=== PATIENT | female | born 1950 | race Caucasian/White ===

== ENCOUNTER 2017-07-25 10:49 | Inpatient (IN) | payer OTHER ==
[~2017-07-25] VITALS: Ht 162.6 cm; Wt 79.8 kg
[~2017-07-25 10:49] MED LIST: CIPRO250 M2 PO; DESYREL300 MG PO; NORCO 5-325 TA1 EACH PO; RESTORIL15 MG PO; TRAMADOL 50 MG50 MG PO; ZPAK PO; sleeping pill
[2017-07-25 10:57] VITALS: BP 169/81
[2017-07-25 11:17] LABS: ABSOLUTE EOSINOPHILS 0.1 thou/uL (0.0-0.7); ABSOLUTE LYMPHOCYTES 2.2 thou/uL (0.8-5.3); ABSOLUTE MONOCYTES 0.6 thou/uL (0.0-1.2); ABSOLUTE NEUTROPHILS 3.2 thou/uL (1.6-8.1); BASOPHILS 0.8 %; EOSINOPHILS 2.2 %; HEMATOCRIT 30.3 % (37.0-47.0); HEMOGLOBIN 9.9 gm/dL (12.0-15.0); LYMPHOCYTES 35.6 %; MCH 31.1 pg (26.0-34.0); MCHC 32.8 g/dL (28.0-37.0); MCV 94.9 fL (80.0-100.0); MONOCYTES 8.9 %; MPV 6.2 fl. (7.2-11.1); NUCLEATED RBCS 0 /100WBC; PLATELET COUNT* 282 thou/uL (150-400); POLYS 52.5 %; RDW-CV 13.9 % (10.5-14.5); WBC 6.2 thou/uL (4.0-11.0)
[2017-07-25 11:24] LABS: CREATININE 3.7 mg/dL (0.6-1.3); POTASSIUM 4.2 mmol/L (3.5-5.1)
[2017-07-25 11:29] LABS: TOTAL BILIRUBIN 0.1 mg/dL (<0.1-1.0); TOTAL PROTEIN 7.4 g/dL (6.4-8.2)
[2017-07-25 11:38] LABS: URINE BILIRUBIN NEGATIVE (Negative); URINE BLOOD 3+ (Negative); URINE CLARITY CLEAR; URINE COLOR YELLOW; URINE GLUCOSE-RANDOM NEGATIVE (Negative); URINE KETONES NEGATIVE (Negative); URINE LEUKOCYTES-REFLEX NEGATIVE (Negative); URINE NITRITE-REFLEX NEGATIVE (Negative); URINE PROTEIN TRACE (Negative); URINE UROBILINOGEN 0.2 E.U./dl (0.2-1.0)
[2017-07-25 11:43] LABS: BACTERIA-REFLEX 1-9 Few /HPF (None Seen); CASTS None Seen /LPF (None Seen); CRYSTALS None Seen /LPF (None Seen); MUCUS 0-3 Light strn/LPF (None Seen); SQUAMOUS 0-3 Few /LPF (0-3); URINE RBC 3-10 Few /HPF (0-2); URINE WBC-REFLEX 0-5 Rare /HPF (0-5)
[2017-07-25 13:30] VITALS: BP 153/83
[2017-07-25 14:30] VITALS: BP 169/76
[2017-07-25 21:05] VITALS: BP 150/77
[2017-07-25 23:08] LABS: HEPATITIS B SURFACE AG Negative (Negative)
[2017-07-26 03:52] LABS: HEMATOCRIT 26.6 % (37.0-47.0); HEMOGLOBIN 8.8 gm/dL (12.0-15.0)
[2017-07-26 04:27] LABS: ALBUMIN 2.6 g/dL (3.4-5.0); CALCIUM 8.2 mg/dL (8.5-10.1); CREATININE 3.6 mg/dL (0.6-1.3); MAGNESIUM 1.9 mg/dL (1.8-2.4); PHOSPHORUS* 4.6 mg/dL (2.5-4.9); POTASSIUM 4.4 mmol/L (3.5-5.1)
[2017-07-26 08:30] VITALS: BP 148/74
[2017-07-26 15:29] VITALS: BP 139/74
[2017-07-26 20:30] VITALS: BP 151/81
[2017-07-27 03:44] VITALS: BP 122/68
[2017-07-27 03:48] LABS: HEMATOCRIT 27.6 % (37.0-47.0); HEMOGLOBIN 9.3 gm/dL (12.0-15.0); MCH 31.6 pg (26.0-34.0); MCHC 33.8 g/dL (28.0-37.0); MCV 93.6 fL (80.0-100.0); MPV 6.7 fl. (7.2-11.1); RBC 2.95 mil/uL (4.20-5.00); RDW-CV 13.7 % (10.5-14.5); WBC 7.3 thou/uL (4.0-11.0)
[2017-07-27 04:34] LABS: CALCIUM 8.4 mg/dL (8.5-10.1); CREATININE 3.5 mg/dL (0.6-1.3); POTASSIUM 4.4 mmol/L (3.5-5.1)
[2017-07-27 08:15] VITALS: BP 119/71
[2017-07-27 15:50] VITALS: BP 135/67
[2017-07-27 20:30] VITALS: BP 147/88
[2017-07-27 23:45] VITALS: BP 133/76
[2017-07-28 03:58] LABS: HEMATOCRIT 29.4 % (37.0-47.0); HEMOGLOBIN 9.8 gm/dL (12.0-15.0); MCH 31.1 pg (26.0-34.0); MCHC 33.3 g/dL (28.0-37.0); MCV 93.3 fL (80.0-100.0); MPV 6.6 fl. (7.2-11.1); RBC 3.15 mil/uL (4.20-5.00); WBC 7.9 thou/uL (4.0-11.0)
[2017-07-28 04:10] LABS: APTT 26.3 Seconds (25.0-31.3); CALCIUM 8.7 mg/dL (8.5-10.1); CREATININE 3.5 mg/dL (0.6-1.3); POTASSIUM 4.5 mmol/L (3.5-5.1); PROTIME 9.5 Seconds (9.20-11.50)
[2017-07-28 08:40] VITALS: BP 128/72
[2017-07-28 09:08] LABS: GLOMERULR BASEM MEMBRN AB 5 units (0-20)
[2017-07-28 12:06] LABS: ANA INTERPRETATION Positive (Negative); KAPPA FREE LIGHT CHAINS 66.7 mg/L (3.3-19.4); LAMBDA FREE LIGHT CHAINS 36.3 mg/L (5.7-26.3)
[2017-07-28 16:00] VITALS: BP 130/68
[2017-07-28 18:06] LABS: GLOBULIN TOTAL 3.7 g/dL (2.2-3.9); M-SPIKE Not Observed g/dL (Not Observed)
[2017-07-28 20:50] VITALS: BP 136/76
[2017-07-29] VITALS (17 sets, daily range): BP systolic 108–132; BP diastolic 52–81
[2017-07-29] MEDS ORDERED: TRAMADOL 50 MG50 MG PO (09:21)
[2017-07-29] MEDS ORDERED: FOLIC ACID1 MG PO (09:21)
[2017-07-29] MEDS ORDERED: FERREX 150 PLU1 EAC1 PO (09:21)
--- NOTE | 2017-07-29 09:34 | CON ---
[address] [address] CONSULTATION Name: SANDRITAMAHESH K Room: [address] IN .R.#: [id number] Admission: 07/25/17 Attend Phys: Connie Garcia MD Discharge: Date of : 54 Report #: [id number] THIS REPORT FOR: //name// CC: Edyta Garcia DATE OF SERVICE: 07/25/2017 NEPHROLOGY CONSULTATION CONSULTING PHYSICIAN: Dr. Garcia. REASON FOR CONSULTATION: Acute kidney injury. HISTORY OF PRESENT ILLNESS: This is a 66-year-old female who was seen by me in the office one time in December for elevated creatinine. She is admitted because on recent lab work done, her creatinine had increased from 1.9-3.5. It is 3.7 here today. The patient herself denies any nausea, vomiting, diarrhea, decreased intake, new medications, antibiotics or NSAIDs. She denies any dysuria or gross hematuria. She was seen in our office in December by me and was to follow up at that time in 3 months. She currently appears to be comfortable. REVIEW OF SYSTEMS: Constitutional, psych, heme, eyes, ENT, respiratory, cardiac, GI, , endocrine, all negative except as documented above. She denies any arthralgias, rashes or hemoptysis. CURRENT MEDICATIONS: Reviewed. PAST MEDICAL HISTORY: History of rectal cancer, depression, anxiety. FAMILY HISTORY: Positive for heart disease. SOCIAL HISTORY: No history of tobacco. PHYSICAL EXAMINATION: VITAL SIGNS: Blood pressure 153/83, pulse 87, respirations 16, temperature 36.5. GENERAL: In no acute distress. EYES: Extraocular movements intact. EARS: Externally normal. CARDIOVASCULAR: Regular rate. LUNGS: No crackles. ABDOMEN: Soft. LYMPHATICS: No substantial peripheral pitting edema. PSYCHIATRIC: Awake, [place] [address] CONSULTATION Name: MAHESH REMY Room: [address] IN [facility]#: [id number] Admission: 07/25/17 Attend Phys: Connie Garcia MD Discharge: Date of : 54 Report #: [id number] LABORATORY DATA: White cell count 6.8, hemoglobin 9.9, platelets 282. Sodium 141, potassium 4.2, chloride 107, bicarbonate 25, BUN 39, creatinine 3.7, glucose 100, calcium 9, albumin 3. UA shows trace protein, 3+ blood, 3-10 rbc's. ASSESSMENT AND PLAN: 1. Acute kidney injury. In February 2016, creatinine 0.9; September 2016, creatinine 1.9. and outpatient creatinine 3.5. November 2016 ultrasound showing left kidney 11.5 cm, right kidney 9.8 cm with a left renal cyst and some evidence of bilateral renal cortical thinning. 2. Hematuria. PLAN: 1. Etiology for acute kidney injury, unclear. We will send workup including KINGA, ANCA, anti-GBM antibody, SPEP, hep B surface antigen, hep C antibody, serum immunofixation, free light chain assay. 2. Check renal ultrasound. 3. Hydrate. 4. She had hematuria previously as well. If serologic workup for hematuria is unremarkable, she may need a Genitourinary referral. 5. If etiology for acute kidney injury is not elucidated, she will likely need a renal biopsy. Thank you for requesting my opinion in the care and management of this patient. <ELECTRONICALLY SIGNED> By: Edyta Xiong MD 07/29/17 0934 [id number] 17Edyta Xiong MD /nt
[2017-07-29 12:35] LABS: CALCIUM 9.2 mg/dL (8.5-10.1); CREATININE 3.8 mg/dL (0.6-1.3); POTASSIUM 4.5 mmol/L (3.5-5.1)
[2017-07-30 04:43] LABS: HEMOGLOBIN 10.1 gm/dL (12.0-15.0)
[2017-07-30 04:55] LABS: CREATININE 3.8 mg/dL (0.6-1.3); POTASSIUM 4.1 mmol/L (3.5-5.1)
[2017-07-30 04:56] LABS: ALBUMIN 3.2 g/dL (3.4-5.0); CALCIUM 8.9 mg/dL (8.5-10.1); CREATININE 3.9 mg/dL (0.6-1.3); PHOSPHORUS* 5.2 mg/dL (2.5-4.9); POTASSIUM 4.3 mmol/L (3.5-5.1)
[2017-07-30 08:25] VITALS: BP 128/72
== END 2017-07-30 12:30 | disposition home or self-care (01) | DRG 683 ==
LOC: M.ERS 10:49 → M.ORTHSURG 12:33 → M.TBA-ER 12:33 → M.ORTHSURG 13:37
PROVIDERS: Emergency Medicine; Internal Medicine Nephrology; ADMIT Internal Medicine
PROC: 0TB03ZX Excision of Right Kidney, Percutaneous Approach, Diagnostic (ICD-10-PCS; principal; 2017-07-25)
DX: N17.9 Acute kidney failure, unspecified (principal); E44.0 Moderate protein-calorie malnutrition; N18.9 Chronic kidney disease, unspecified; R31.9 Hematuria, unspecified; F41.9 Anxiety disorder, unspecified; D50.9 Iron deficiency anemia, unspecified; F32.9 Major depressive disorder, single episode, unspecified; Z68.30 Body mass index [BMI] 30.0-30.9, adult; Z85.41 Personal history of malignant neoplasm of cervix uteri; Z85.048 Personal history of other malignant neoplasm of rectum, rectosigmoid junction, and anus; Z90.49 Acquired absence of other specified parts of digestive tract; Z90.710 Acquired absence of both cervix and uterus; Z79.899 Other long term (current) drug therapy; Z82.49 Family history of ischemic heart disease and other diseases of the circulatory system